=== PATIENT | female | born 1970 | race African-American/Black ===

== ENCOUNTER 2023-01-30 16:39 | Inpatient (IN) | payer OTHER ==
[2023-01-30 18:24] VITALS: BMI 27.8
[2023-01-30] MEDS ORDERED: BISMUTH SUBSALICYLATE 524 MG/30 ML PO PRN (19:29)
[2023-01-30] MEDS ORDERED: DICYCLOMINE HCL 10 MG CAPSULE PO PRN (19:29)
[2023-01-30] MEDS ORDERED: NALOXONE HCL (KLOXXADO) 8 MG SPRAY NS PRN (19:29)
[2023-01-30] MEDS ORDERED: IBUPROFEN 400 MG TABLET (FP) PO PRN (19:29)
[2023-01-30] MEDS ORDERED: BENZOCAINE/MENTHOL (CHLORASEPTIC ) LOZENGE MM PRN (19:29)
[2023-01-30] MEDS ORDERED: methaDONE HCL 10 MG TABLET (FOR DETOX USE ONLY) PO ONE (19:29)
[2023-01-30] MEDS ORDERED: MAGNESIUM HYDROX 2400MG/30ML ORAL SUSPENSION 30 ML CUP PO PRN (19:29)
[2023-01-30] MEDS ORDERED: NICOTINE POLACRILEX 2 MG GUM BUC PRN (19:29)
[2023-01-30] MEDS ORDERED: NICOTINE 10 MG CARTRIDGE (INHALER) IH PRN (19:29)
[2023-01-30] MEDS ORDERED: METHOCARBAMOL 500 MG TABLET PO PRN (19:29)
[2023-01-30] MEDS ORDERED: guaiFENesin 600 MG TABLET.ER (FP) PO PRN (19:29)
[2023-01-30] MEDS ORDERED: IBUPROFEN 600 MG TABLET (FP) PO PRN (19:29)
[2023-01-30] MEDS ORDERED: NALOXONE HCL 0.4 MG/ML VIAL IM PRN (19:29)
[2023-01-30] MEDS ORDERED: ACETAMINOPHEN 325 MG TABLET (FP) PO PRN (19:29)
[2023-01-30] MEDS ORDERED: MAG HYDROX/AL HYDROX/SIMETH 30 ML UNIT-DOSE CUP PO PRN (19:29)
[2023-01-30] MEDS ORDERED: BENZONATATE 200 MG CAPSULE PO PRN (19:29)
[2023-01-30] MEDS ORDERED: LOPERAMIDE HCL 2 MG CAPSULE PO PRN (19:29)
[2023-01-30] MEDS ORDERED: POLYETHYLENE GLYCOL (HEALTHYLAX) 3350 17 GM PACKET PO PRN (19:29)
[2023-01-30] MEDS ORDERED: methaDONE HCL 10 MG TABLET (FOR DETOX USE ONLY) ONE (20:52)
[2023-01-30] MEDS ORDERED: cloNIDine HCL 0.1 MG TABLET ONE ×2 (20:53→20:56)
[2023-01-30] MEDS: cloNIDine HCL 0.1 MG TABLET PO PRN (20:56)
[2023-01-30] MEDS: THIAMINE HCL 100 MG TABLET (FP) PO SCH (22:42)
[2023-01-30] MEDS: MELATONIN 5 MG TABLETS PO SCH (22:42)
[2023-01-31 09:43] LABS: POTASSIUM 4.8 mmol/L (3.5-5.1)
[2023-01-31 09:45] LABS: CALCIUM 10.3 mg/dL (8.5-10.1)
[2023-01-31 09:48] LABS: HEMATOCRIT 37.9 % (32.4-45.2); HEMOGLOBIN 12.7 GM/dL (10.7-15.3); MCH 28.9 pg (25.7-33.7); MCHC 33.5 g/dl (32.0-36.0); MEAN PLT VOLUME 8.8 fl (7.5-11.1); PLATELET COUNT 280 10^3/uL (134-434); RBC 4.41 M/mm3 (3.60-5.2)
[2023-01-31 09:49] LABS: BLOOD UREA NITROGEN 10.8 mg/dL (7-18)
[2023-01-31 09:50] LABS: ALBUMIN 3.3 g/dl (3.4-5.0)
[2023-01-31 09:52] LABS: CREATININE 0.6 mg/dL (0.55-1.3)
[2023-01-31 09:53] LABS: BILIRUBIN,TOTAL 0.8 mg/dL (0.2-1)
[2023-01-31 09:54] LABS: TOT PROT 6.3 g/dl (6.4-8.2)
[2023-01-31] MEDS: PRENATAL VITAMINS W/ FOLIC ACID TABLET (FP) PO SCH (10:58)
[2023-01-31] MEDS: THIAMINE HCL 100 MG TABLET (FP) PO SCH (23:09)
[2023-01-31] MEDS: cloNIDine HCL 0.1 MG TABLET PO PRN (23:09)
[2023-01-31] MEDS: MELATONIN 5 MG TABLETS PO SCH (23:09)
[2023-02-01] MEDS ORDERED: methaDONE HCL 10 MG TABLET (FOR DETOX USE ONLY) PO ONE ×2 (10:00→14:32)
[2023-02-01] MEDS: PRENATAL VITAMINS W/ FOLIC ACID TABLET (FP) PO SCH (10:25)
[2023-02-01 13:15] VITALS: RESP 18
[2023-02-01] MEDS ORDERED: diazePAM 5 MG TABLET PO PRN (14:33)
[2023-02-01 17:30] VITALS: BP 131/81; PULSE 60; TEMP 97.1
[2023-02-01] MEDS ORDERED: amLODIPine BESYLATE 10 MG TABLET (FP) PO SCH (18:00)
[2023-02-03] MEDS ORDERED: methaDONE HCL 10 MG TABLET (FOR DETOX USE ONLY) PO ONE (10:00)
== END 2023-02-01 20:02 | disposition left against medical advice (07) | DRG 894 ==
LOC: YASAS 16:39 → Y6N 21:11
PROVIDERS: ADMIT Allergy & Immunology; ATTEND Surgery
PROC: HZ2ZZZZ Detoxification Services for Substance Abuse Treatment (ICD-10-PCS; principal; 2023-01-30)
DX: F11.23 Opioid dependence with withdrawal (principal); F14.20 Cocaine dependence, uncomplicated; F17.210 Nicotine dependence, cigarettes, uncomplicated; F31.9 Bipolar disorder, unspecified; F41.9 Anxiety disorder, unspecified; M48.00 Spinal stenosis, site unspecified; M54.50 Low back pain, unspecified; G89.29 Other chronic pain
CPT/HCPCS: 36415; 80053; 81025; 85027; 86780; 87635; 93005; 93010